=== PATIENT | female | born 1970 | race Caucasian/White ===

== ENCOUNTER → 2016-12-18 | Outpatient (CLI) | payer OTHER ==
[~2016-12-18] MED LIST: AMT50 PO; ATOR10TA82 PO; BIOFTAB30 PO; CLON0.5T3 PO; FLUT0.15 NAE; MULTTAB58 PO; [UNRECOGNIZED DRUG - CODE] PO
[2016-12-18 08:42] LABS: ALT/SGPT 37 U/L (12-78); BLOOD UREA NITROGEN 10 mg/dl (7-18); BUN/CREATININE RATIO 12.7 (10-20); CALCIUM 8.9 mg/dl (8.5-10.1); CARBON DIOXIDE 27 mmol/L (21-32); CHLORIDE 102 mmol/L (98-107); CHOLESTEROL 154 mg/dl (0-200); GLUCOSE 107 mg/dl (70-99); SODIUM 138 mmol/L (136-145)
[2016-12-18 08:51] LABS: ALKALINE PHOSPHATASE 76 U/L (45-117); AST/SGOT 15 U/L (15-37); CHOLESTEROL/HDL RATIO 2.9; HDL CHOLESTEROL 53 mg/dl; LDL CHOLESTEROL CALCULATED 61 mg/dl; TRIGLYCERIDES 199 mg/dl (0-150); VERY LOW DENSITY LIPOPROT CALC 40 mg/dl
== END | disposition home or self-care (01) ==
LOC: C.LAB 07:45
PROVIDERS: ATTEND Internal Medicine
DX: E78.00 Pure hypercholesterolemia, unspecified (principal); R94.6 Abnormal results of thyroid function studies

== ENCOUNTER → 2016-12-31 | Outpatient (CLI) | payer OTHER ==
[~2016-12-31] MED LIST changes: -ATOR10TA82 PO; +ATOR10TA88 PO
--- NOTE | 2016-12-31 12:25 | MAMMOGRAPHY REPORT ---
BILATERAL DIGITAL SCREENING MAMMOGRAM TOMOSYNTHESIS WITH CAD: 12/31/2016 CLINICAL HISTORY: Routine screening. TECHNIQUE: Breast tomosynthesis in addition to standard 2D mammography was performed. Current study was also evaluated with a Computer Aided Detection (CAD) system. COMPARISON: Comparison is made to exams dated: 12/26/2015 mammogram, 12/20/2014 mammogram, 12/18/2013 ma mmogram, 12/13/2012 mammogram - [facility], 04/20/2011 mammogram, and 10/24/2007 mamm ogram - [facility]. BREAST COMPOSITION: The tissue of both breasts is heterogeneously dense, which may obscure small mas ses. FINDINGS: No suspicious masses, calcifications, or areas of architectural distortion are noted in ei ther breast. There has been no significant interval change compared to prior exams. IMPRESSION: ACR BI-RADS CATEGORY 1: NEGATIVE There is no mammographic evidence of malignancy. A 1 year screening mammogram is recommended. The pa tient will receive written notification of the results. Approximately 10% of breast cancers are not detected with mammography. A negative mammographic report should not delay biopsy if a clinically suggestive mass is present. Zayra Alamo M.D. ah/:12/31/2016 07:43:00 Director Of Strategic Sourcing: Augustin RODRIGUEZ(R)(M), [facility] letter sent: Normal 1/2 BI-RADS Code: ACR BI-RADS Category 1: Negative
== END | disposition home or self-care (01) ==
LOC: C.MAMM 07:18
PROVIDERS: ATTEND Internal Medicine
DX: Z12.31 Encounter for screening mammogram for malignant neoplasm of breast (principal)

== ENCOUNTER → 2017-02-15 | Outpatient (CLI) | payer OTHER ==
--- NOTE | 2017-02-15 08:05 | DIAGNOSTIC IMAGING REPORT ---
LEFT EXTREMITY NONVASCULAR LIMITED CLINICAL HISTORY: 46 years-old Female presenting with left shoulder skin lump. TECHNIQUE: Real-time grayscale ultrasound imaging of the left shoulder was performed. Color Doppler was also performed. COMPARISON: None. FINDINGS: Within the subcutaneous fat of the left shoulder at the site of clinical concern is a circumscribed 4.4 x 8.2 x 1.5 cm region that is essentially isoechoic to surrounding fat although having an encapsulated appearance. No hyperemia. No fluid collection. IMPRESSION: 1. Apparent circumscribed encapsulated mass in the subcutaneous fat of the left shoulder at the site of clinical concern with echogenicity that matches the surrounding subcutaneous fat, most likely represents a lipoma. If there is need for further characterization, contrast-enhanced MR could be obtained. Electronically signed by: Niraj Amin M.D. 02/15/2017 8:03 AM Dictated Date/Time: 02/15/2017 8:02 AM
== END | disposition home or self-care (01) ==
LOC: C.ULTRBC 07:14
PROVIDERS: ATTEND Internal Medicine
DX: R22.32 Localized swelling, mass and lump, left upper limb (principal)

== ENCOUNTER → 2017-03-07 | Outpatient (CLI) | payer OTHER ==
[2017-03-07 18:11] LABS: INR 0.9 (0.9-1.1); PROTHROMBIN TIME (PATIENT) 9.9 SECONDS (9.0-12.0)
[2017-03-07 18:26] LABS: BASO % 0.7 %; BASO ABS # 0.08 K/uL (0-0.2); COMPLETE YES; EOS % 2.1 %; HEMATOCRIT 41.8 % (37-47); IG% 0.4 %; LYMPH % 28.5 %; LYMPH ABS # 3.16 K/uL (1.2-3.4); MEAN CELL VOLUME 89.7 fL (80-100); MEAN CORPUSCULAR HGB CONC 33.5 g/dl (32-36); MEAN PLATELET VOLUME 9.3 fL (7.4-10.4); MONO % 7.5 %; NEUT % 60.8 %; PLATELET COUNT 379 K/uL (130-400); RED BLOOD COUNT 4.66 M/uL (4.2-5.4); WHITE BLOOD COUNT 11.09 K/uL (4.8-10.8)
[2017-03-07 18:30] LABS: BLOOD UREA NITROGEN 10 mg/dl (7-18); BUN/CREATININE RATIO 13.1 (10-20); CALCIUM 9.2 mg/dl (8.5-10.1); CARBON DIOXIDE 27 mmol/L (21-32); CHLORIDE 102 mmol/L (98-107); CREATININE 0.74 mg/dl (0.60-1.20); GLUCOSE 102 mg/dl (70-99); POTASSIUM 3.8 mmol/L (3.5-5.1); SODIUM 137 mmol/L (136-145)
== END | disposition home or self-care (01) ==
LOC: C.LAB 16:59
PROVIDERS: ATTEND Plastic Surgery
DX: D17.9 Benign lipomatous neoplasm, unspecified (principal)

== ENCOUNTER → 2017-03-17 | Outpatient (CLI) | payer OTHER | END | disposition home or self-care (01) | LOC: C.PAPS 09:29 | PROVIDERS: ATTEND Physician Assistant | DX: Z12.4 Encounter for screening for malignant neoplasm of cervix (principal) ==

== ENCOUNTER → 2017-03-29 | Day surgery (SDC) | payer OTHER ==
[2017-03-11 15:09] VITALS: BMI 19.0
[~2017-03-29] VITALS: Ht 167.6 cm; Wt 98.5 kg
[~2017-03-29] MED LIST changes: +ATROPINE SULFATE 0.1 MG/ML 5ML SYR IV PRN; +BUPIVACAINE 0.25% 30 ML VIAL ONE; +CEFAZOLIN 2000 MG/60 ML D5W IV SCH; +DEXAMETHASONE SOD INJ 4 MG/ML VIAL IV PRN; +EpHEDrine SULFATE INJ 50 MG/ML AMP IV PRN; +FENTANYL CITRATE INJ 50 MCG/1 ML 2 ML VIAL IV PRN; +FENTANYL CITRATE INJ 50 MCG/1 ML 2 ML VIAL ONE; +KETOROLAC TROMETHAMINE 30 MG/ML VIAL IV. PRN; +LABETALOL HCL IV 5 MG/ML 20ML IV PRN; +LACTATED RINGER'S 1000ML 1,000 ML IV SCH; +LIDOCAINE HCL 1% 20 ML VIAL ONE; +LIDOCAINE HCL 2% 2 ML VIAL (20MG/ML) ONE; +LIDOCAINE/EPINEPHRINE 1% INJ 50 ML VIAL ONE; +METOCLOPRAMIDE HCL INJ 5 MG/ML 2 ML VIAL IV PRN; +MIDAZOLAM HCL 1 MG/ML 2ML VIAL ONE; +MoRPHine SULFATE 10 MG/ML CARP/VIAL IV PRN; +MoRPHine SULFATE 2 MG/ML CARP IV PRN; +MoRPHine SULFATE 4 MG/ML 1 ML CARP\\VIAL IV PRN; +ONDANSETRON INJ 2 MG/ML 2 ML VIAL IV PRN; +OXYCODONE/ACETAMINOPHEN 5-325 TAB PO PRN; +PHENYLEPHRINE 100MCG/ML 5ML SYR IV PRN; +PROPOFOL IV EMULSION 10 MG/ML 20 ML VIAL IV ONE; +SODIUM CHLORIDE 0.9% 1000ML 1,000 ML IV SCH
--- NOTE | 2017-03-29 09:33 | History & Physical Bridge - SC ---
H&P Re-Evaluation Bridge Note: I have examined the patient, reviewed the History & Physical and in the interval since the performance of the History & Physical I have noted the following changes of clinical significance: No changes noted
--- NOTE | 2017-03-29 10:33 | [facility] Post Operative Brief Note ---
Immediate Operative Summary Operative Date Mar 29, 2017. Pre-Operative Diagnosis Lipoma Left Shoulder Post-Operative Diagnosis Same, Pathology Pending Procedure(s) Performed Excision of Lipoma, Left Anterior Shoulder Surgeon Dr. Minh Mccollum Night Assistant Surgeon(s) none Estimated Blood Loss 1 Findings 12x4 cm subcutaneous lipoma Specimens A. Lipoma of Left Anterior Shoulder Anesthesia local with sedation Complication(s) None Disposition Recovery Room / PACU
[2017-03-29 10:35] VITALS: TEMP 37.2
--- NOTE | 2017-03-29 10:37 | Discharge Instructions-SurgCtr ---
Discharge Instructions Date of Service Mar 29, 2017. Visit Reason for Visit: Left Shoulder Lipoma Discharge Discharge Diagnosis / Problem: lipoma left shoulder Discharge Goals Goal(s): Decrease discomfort, Improve function Activity Recommendations Activity Limitations: per Instructions/Follow-up section Anesthesia . Post Anesthesia Instructions: If you have had General Anesthesia or IV Sedation: * Do not drive today. * Resume driving when surgeon permits. * Do not make important decisions or sign legal documents today. * Call surgeon for: 1. Temperature elevations greater than 101 degrees F. 2. Uncontrollable pain. 3. Excessive bleeding. 4. Persistent nausea and vomiting. 5. Medication intolerance (nausea, vomiting or rash). * For nausea and vomiting use only clear liquids such as: tea, soda, bouillon until nausea subsides, then gradually increase diet as tolerated. * If you have any concerns or questions, call your surgeon's office. If physician is unavailable and it is an emergency, call 911 or go to the nearest emergency room. . Instructions / Follow-Up Instructions / Follow-Up ACTIVITY RECOMMENDATIONS: __Normal activities _x_No bending, lifting or straining __No driving _x_Driving allowed when you are off pain medications __Walking permitted __You should have help at home for ___ days DRESSINGS: __No dressings required _x_Keep dressings dry/in place until first office visit __Remove dressings ___ and leave dressings off __Apply ice ___ days __Remove dressings and reapply garment __Apply antibiotic ointment (Bacitracin, Neosporin, etc) to wounds 3-4 times/ day for 10 days BATHING: _x_Keep dressings dry _x_Sponge bathing permitted __Showering permitted _x_No swimming, hot tubs or soaking in a tub MEDICATIONS: Resume previous medications unless instructed otherwise by your surgeon. _x_Do not use aspirin, Motrin, Advil or Ibuprofen as these may promote bleeding. Please use Tylenol. _x_Prescription(s) provided: in office OTHER INSTRUCTIONS: __Record drain output 2-3 times per day SPECIAL CARE INSTRUCTIONS: * It is normal to have a mild fever after surgery. If your temperature is higher than 101.5 degrees F, please call the office at [phone]. * Constipation is a typical side effect of pain medication. An over-the- counter stool softener will help relieve this. * Leaking around surgical drains may occur and should not cause concern. Sometimes these drains become clogged. If this happens, remove the bulb and milk the clot out of the tube, then replace the bulb. * Drainage from wounds after liposuction is normal and should be expected. Garments will become soiled. You should protect furniture and bedding. This drainage should mostly subside within 2-3 days. Leave garments in place unless instructed to remove them. * If you have unusual drainage from a wound or are concerned you have an infection or have any questions or concerns, please call the office at [phone]. FOLLOW UP VISIT: If not already scheduled, please call the office, , when you return home after surgery to schedule an appointment to be seen in ___ days. Diet Recommendations Home Diet: resume previous diet Procedures Procedures Performed: Excision of Lipoma, Left Anterior Shoulder Pending Studies Studies pending at discharge: no Medical Emergencies . Who to Call and When: Medical Emergencies: If at any time you feel your situation is an emergency, please call 911 immediately. . Non-Emergent Contact Non-Emergency issues call your: Primary Care Provider, Surgeon Call Non-Emergent contact if: temperature is above 101.5, your pain is not controlled, wound has increased redness . . "Provider Documentation" section prepared by Corin Mccollum. . [place] Drug Monitoring Program Search Results: patient reviewed within database, no issues identified ( documented in office chart)
[2017-03-29 10:38] VITALS: Ht 167.6 cm; Wt 98.5 kg
[2017-03-29 11:03] VITALS: BP 119/79; PULSE 74; O2SAT 99
--- NOTE | 2017-03-29 11:11 | Anesthesia Progress Nt - [facility] ---
Anesthesia Post Op Note Date & Time Mar 29, 2017 at 11:10 Vital Signs Pain Intensity: 0 Vital Signs Past 12 Hours Date Time Temp Pulse Resp B/P (MAP) Pulse Ox O2 Delivery O2 Flow Rate FiO2 03/29/17 11:03 74 16 119/79 (92) 99 Room Air 03/29/17 10:35 37.2 88 16 113/59 (77) 99 Room Air 03/29/17 08:44 36.5 84 16 117/77 (90) 95 Room Air Notes Mental Status: alert / awake / arousable, participated in evaluation Pt Amnestic to Procedure: Yes Nausea / Vomiting: adequately controlled Pain: adequately controlled Airway Patency, RR, SpO2: stable & adequate BP & HR: stable & adequate Hydration State: stable & adequate Anesthetic Complications: no major complications apparent
--- NOTE | 2017-03-30 09:03 | OPERATIVE REPORT ---
DATE OF OPERATION: 03/29/2017 PREOPERATIVE DIAGNOSIS: Left shoulder lipoma. POSTOPERATIVE DIAGNOSIS: Same. PROCEDURE: Excision of left anterior shoulder lipoma. SURGEON: Dr. Corin Mccollum. COMMERCIAL ILLUSTRATOR: None. ANESTHESIA: Local with sedation. COMPLICATIONS: None. INDICATION FOR THE PROCEDURE: The patient is a 46-year-old female who presented to my office with an enlarging left shoulder mass which caused discomfort when using her seatbelt. She desired excision. BRIEF DESCRIPTION OF THE PROCEDURE: The risks, benefits and alternatives of the procedure were explained to the patient who agreed and signed consent. She was identified and marked in the preoperative holding area. She was brought to the operating room where she was positioned supine and placed under anesthesia without incident. Surgical site was prepped and draped sterilely. A timeout procedure was performed. A 50:50 mix of 1% lidocaine with epinephrine and 0.25% Marcaine plain was used to anesthetize the planned incision as well as the surrounding surgical site. A 15-blade scalpel was used to make a small incision along the lines of relaxed skin tension. Just deep to dermis, the lipoma was encountered. It was well circumscribed. It was able to be bluntly dissected using a curved hemostat as well as blunt finger dissection with electrocautery to divide fibrous bands and provide hemostasis. The lesion was removed in its entirety. It measured 12 x 4 cm. Hemostasis was achieved with electrocautery. Additional local anesthetic was injected into the base of the wound. Wound was reapproximated using 3-0 Vicryl interrupted dermal sutures and 3-0 Monocryl running subcuticular suture. Dermabond was applied, followed by Friona Foam and elastoplast tape to provide compression. The procedure was tolerated well. She was awakened and transferred to recovery room in satisfactory condition. I attest to the content of the Intraoperative Record and any orders documented therein. Any exception s are noted below.
== END | disposition home or self-care (01) ==
LOC: X.SURG 08:16
PROVIDERS: ATTEND Plastic Surgery
DX: D17.22 Benign lipomatous neoplasm of skin and subcutaneous tissue of left arm (principal); F43.22 Adjustment disorder with anxiety; J45.909 Unspecified asthma, uncomplicated; E78.1 Pure hyperglyceridemia; Z79.899 Other long term (current) drug therapy

== ENCOUNTER → 2017-08-30 | Outpatient (CLI) | payer OTHER ==
[~2017-08-30] MED LIST changes: +ATOR10TA82 PO; -ATOR10TA88 PO; -ATROPINE SULFATE 0.1 MG/ML 5ML SYR IV PRN; -BUPIVACAINE 0.25% 30 ML VIAL ONE; -CEFAZOLIN 2000 MG/60 ML D5W IV SCH; -DEXAMETHASONE SOD INJ 4 MG/ML VIAL IV PRN; -EpHEDrine SULFATE INJ 50 MG/ML AMP IV PRN; -FENTANYL CITRATE INJ 50 MCG/1 ML 2 ML VIAL IV PRN; -FENTANYL CITRATE INJ 50 MCG/1 ML 2 ML VIAL ONE; -KETOROLAC TROMETHAMINE 30 MG/ML VIAL IV. PRN; -LABETALOL HCL IV 5 MG/ML 20ML IV PRN; -LACTATED RINGER'S 1000ML 1,000 ML IV SCH; -LIDOCAINE HCL 1% 20 ML VIAL ONE; -LIDOCAINE HCL 2% 2 ML VIAL (20MG/ML) ONE; -LIDOCAINE/EPINEPHRINE 1% INJ 50 ML VIAL ONE; -METOCLOPRAMIDE HCL INJ 5 MG/ML 2 ML VIAL IV PRN; -MIDAZOLAM HCL 1 MG/ML 2ML VIAL ONE; -MoRPHine SULFATE 10 MG/ML CARP/VIAL IV PRN; -MoRPHine SULFATE 2 MG/ML CARP IV PRN; -MoRPHine SULFATE 4 MG/ML 1 ML CARP\\VIAL IV PRN; -ONDANSETRON INJ 2 MG/ML 2 ML VIAL IV PRN; -OXYCODONE/ACETAMINOPHEN 5-325 TAB PO PRN; -PHENYLEPHRINE 100MCG/ML 5ML SYR IV PRN; -PROPOFOL IV EMULSION 10 MG/ML 20 ML VIAL IV ONE; -SODIUM CHLORIDE 0.9% 1000ML 1,000 ML IV SCH
[2017-08-30 11:13] LABS: ALBUMIN 3.7 gm/dl (3.4-5.0); ALKALINE PHOSPHATASE 81 U/L (45-117); ALT/SGPT 47 U/L (12-78); AST/SGOT 17 U/L (15-37); BLOOD UREA NITROGEN 13 mg/dl (7-18); CALCIUM 8.5 mg/dl (8.5-10.1); CARBON DIOXIDE 26 mmol/L (21-32); CREATININE 0.75 mg/dl (0.60-1.20); GLUCOSE 111 mg/dl (70-99); POTASSIUM 4.1 mmol/L (3.5-5.1); SODIUM 135 mmol/L (136-145)
[2017-08-30 11:19] LABS: CHOLESTEROL 151 mg/dl (0-200); LDL CHOLESTEROL CALCULATED 60 mg/dl; TOTAL PROTEIN 7.1 gm/dl (6.4-8.2)
== END | disposition home or self-care (01) ==
LOC: C.LABBC 07:14
PROVIDERS: ATTEND Internal Medicine
DX: R31.29 Other microscopic hematuria (principal); R94.6 Abnormal results of thyroid function studies; E78.00 Pure hypercholesterolemia, unspecified; R73.9 Hyperglycemia, unspecified

== ENCOUNTER → 2018-02-09 | Outpatient (CLI) | payer OTHER ==
[~2018-02-09] MED LIST changes: -CLON0.5T3 PO; +KLN/5 PO
--- NOTE | 2018-02-10 15:41 | MAMMOGRAPHY REPORT ---
BILATERAL DIGITAL SCREENING MAMMOGRAM TOMOSYNTHESIS WITH CAD: 02/09/2018 CLINICAL HISTORY: Routine screening. TECHNIQUE: The study was acquired using full field digital technology and interpreted from soft copy. Breast tomosynthesis in addition to standard 2D mammography was performed. Current study was also ev aluated with a Computer Aided Detection (CAD) system. COMPARISON: Comparison is made to exams dated: 12/31/2016 mammogram, 12/26/2015 mammogram, 12/20/2014 damon mogram, 12/18/2013 mammogram, 12/13/2012 mammogram - [facility], and 04/20/2011 mammo gram - [facility]. BREAST COMPOSITION: The tissue of both breasts is heterogeneously dense, which may obscure small mass es. FINDINGS: No suspicious masses, calcifications, or areas of architectural distortion are noted in either breast . There has been no significant interval change compared to prior exams. IMPRESSION: ACR BI-RADS CATEGORY 1: NEGATIVE There is no mammographic evidence of malignancy. A 1 year screening mammogram is recommended.( 019) The patient will receive written notification of the results. Some breast cancers are not detected with mammography. A negative mammographic report should not anamaria y biopsy if a clinically suggestive mass is present. Zayra Alamo M.D. ah/:02/09/2018 16:10:35 Narrow Gauge Operator: RT Tiffany(Abby)(M), [facility] letter sent: Normal 1/2 BI-RADS Code: ACR BI-RADS Category 1: Negative
== END | disposition home or self-care (01) ==
LOC: C.MAMM 15:24
PROVIDERS: ATTEND Internal Medicine
DX: Z12.31 Encounter for screening mammogram for malignant neoplasm of breast (principal)

== ENCOUNTER → 2018-02-11 | Outpatient (CLI) | payer OTHER ==
[2018-02-11 08:15] LABS: ALBUMIN 3.6 gm/dl (3.4-5.0); ALKALINE PHOSPHATASE 75 U/L (45-117); ALT/SGPT 30 U/L (12-78); AST/SGOT 15 U/L (15-37); BLOOD UREA NITROGEN 16 mg/dl (7-18); CALCIUM 8.7 mg/dl (8.5-10.1); CARBON DIOXIDE 25 mmol/L (21-32); CREATININE 0.68 mg/dl (0.60-1.20); GLUCOSE 100 mg/dl (70-99); POTASSIUM 4.1 mmol/L (3.5-5.1); SODIUM 138 mmol/L (136-145); TOTAL PROTEIN 7.2 gm/dl (6.4-8.2)
[2018-02-11 09:37] LABS: HEMOGLOBIN A1C 5.6 % (4.5-5.6)
== END | disposition home or self-care (01) ==
LOC: C.LAB 07:17
PROVIDERS: ATTEND Internal Medicine
DX: R73.9 Hyperglycemia, unspecified (principal)

== ENCOUNTER 2019-03-09 06:20 | Observation (INO) ==
--- NOTE | 2019-02-19 15:41 | PAT Medication Instructions ---
Medication Instructions Date of Service February 19, 2019 Home Medications Medication Instructions Recorded escitalopram 20 mg tablet 20 mg PO QAM #30 tab 02/19/19 acetaminophen [Tylenol Extra Strength] 1,000 mg PO Q8H PRN amitriptyline 50 mg tablet 50 mg PO HS atorvastatin 10 mg tablet 10 mg PO HS clonazepam 0.5 mg tablet 0.5 mg PO DAILY PRN fluticasone propionate 50 mcg/actuation nasal spray,suspension 1 sprays INTRANASAL BID PRN sumatriptan 25 mg tablet 25 mg PO DAILY PRN cholecalciferol (vitamin D3) [Vitamin D3] 2,000 unit PO DAILY multivitamin 1 tab PO DAILY escitalopram 20 mg tablet 20 mg PO QAM DO NOT take the morning of surgery cholecalciferol (vitamin D3) [Vitamin D3] 2,000 unit PO DAILY multivitamin 1 tab PO DAILY Take morning of surgery With a small sip of water, OTHERWISE NOTHING TO EAT OR DRINK AFTER MIDNIGHT: Acetaminophen [Tylenol Extra Strength] 1,000 mg PO Q8H PRN (okay to take up to 4 hours prior to surgery if needed) clonazepam 0.5 mg tablet 0.5 mg PO DAILY PRN (if needed) fluticasone propionate 50 mcg/actuation nasal spray,suspension 1 sprays INTRANASAL BID PRN (if needed) sumatriptan 25 mg tablet 25 mg PO DAILY PRN (if needed) escitalopram 20 mg tablet 20 mg PO QAM Take evening before surgery acetaminophen [Tylenol Extra Strength] 1,000 mg PO Q8H PRN (if needed) amitriptyline 50 mg tablet 50 mg PO HS atorvastatin 10 mg tablet 10 mg PO HS clonazepam 0.5 mg tablet 0.5 mg PO DAILY PRN (if needed) fluticasone propionate 50 mcg/actuation nasal spray,suspension 1 sprays INTRANA DEVON BID PRN (if needed) sumatriptan 25 mg tablet 25 mg PO DAILY PRN (if needed) Other Notes If you have any questions please call us at [phone] or [phone] or [phone] or [phone]
--- NOTE | 2019-02-20 09:28 | Anesthesiology Consultation ---
Date of Service February 20, 2019 Assessment & Plan (1) Encounter for pre-operative examination: - Check test AM DOS Chart Review Chart Review: Acceptable Risk for Surgery and Patient seen in Pre Admission Te sting Teaching & Discussion Pre-Anesthesia Teaching/Discussion Notes: Instructed NPO after midnight before surgery,except medications with 15 cc of water. Medication instructions provided according to the PAT guidelines. History Surgery Operation Date: 03/09/19 10:00 Proposed Procedures p Robotic Total Laparos Hysterectomy - Brenann Gordon MD Height/Weight Height: 5 ft 6 in Weight: 109.1 kg Allergies Allergy/AdvReac Type Severity Reaction Status Date / Time Animal dander - Cats Allergy Unknown SWELLING Uncoded 02/20/19 08:31 Animal dander - Dogs Allergy Unknown SWELLING Uncoded 02/20/19 08:31 sertraline AdvReac Unknown FEELS Uncoded 02/20/19 08:31 SPACED OUT Medications Home Medications Medication Instructions Recorded Confirmed Last Taken acetaminophen [Tylenol Extra 1,000 mg PO Q8H PRN 04/12/18 02/12/19 Unknown Strength] amitriptyline 50 mg tablet 50 mg PO HS #90 tab 01/19/19 02/12/19 Unknown atorvastatin 10 mg tablet 10 mg PO HS #90 tab 01/19/19 02/12/19 Unknown clonazepam 0.5 mg tablet 0.5 mg PO DAILY PRN #30 tab 01/19/19 02/12/19 Unknown fluticasone propionate 50 1 sprays INTRANASAL BID PRN #1 gm 01/19/19 02/12/19 Unknown mcg/actuation nasal spray,suspension sumatriptan 25 mg tablet 25 mg PO DAILY PRN #10 tab 01/19/19 02/12/19 Unknown cholecalciferol (vitamin D3) 2,000 unit PO DAILY 02/12/19 02/20/19 Unknown [Vitamin D3] multivitamin 1 tab PO DAILY 02/12/19 02/20/19 Unknown escitalopram 20 mg tablet 20 mg PO QAM #30 tab 02/19/19 02/20/19 Unknown Past Medical History Medical History Anxiety and depression Asthma stable; environmental allergy induced High cholesterol History of migraine Obesity Uterine fibroid Exercise / Class Metabolic Activity II 4-5 Yardwork/Stairs/Walk up hill Past Family History Family History Aunt Breast cancer Uterine cancer Uncle Hx of CABG Gout Leukemia Osteoarthritis Grandfather (Maternal) Hx of CABG Diabetes Osteoarthritis Grandmother (Maternal) Colorectal cancer Congestive heart failure Diabetes Hypertension Osteoarthritis Grandfather (Paternal) Diabetes Hypertension Father Hypertension Mother Gout Osteoarthritis Other Heart disease Stroke Past Surgical History Surgical History History of dental surgery History of surgery on left wrist Hx of hernia repair X2 RIGHT Hx of tubal ligation Past Anesthesia History No Hx of Anesthesia Complications and No Family Hx of Anesthesia Complications History of PONV No Hx of PONV and No Hx of Motion Sickness Social History Smoking Status: Former smoker Do You Dip or Chew Tobacco: No Smoking End Date: Quit 6 years ago (hx social use) Hx Alcohol Use: Yes alcohol intake frequency: a few times a week (mixed drinks/shots) Hx Substance Use: No Review of Systems Diet controlled reflux. Patient denies chest pain, shortness of breath, dyspnea on exertion, cough, wheezing, palpitations. Physical Exam Vital Signs VITALS BP 132/83 P 87 TEMP 98.4 SP02 95%RA RESP 18 PHYSICAL Full neck and c-spine range of motion. Full TMJ range of motion. TMD 3 finger breaths Mallampati Score 2 Dentition: intact, crowns on molars Lungs: clear throughout to auscultation Cardiac: regular rate and rhythm, no murmurs noted Spine: normal Carotid arteries: negative bruit Extremities: no edema Testing Laboratory Results 02/20/19 09:45 Blood Type O Positive 02/20/19 09:45 Antibody Screen NEGATIVE 02/20/19 09:45
[2019-02-20 11:10] LABS: Basophils # (auto) 0.09 K/uL (0-0.2); Eosinophils # (auto) 0.32 K/uL (0-0.5); Eosinophils % (auto) 3.4 %; Hematocrit (blood only) 39.2 % (37-47); Hemoglobin 13.3 g/dL (12.0-16.0); Immature Granulocytes # (auto) 0.03 K/uL (0.00-0.02); Immature Granulocytes % (auto) 0.3 %; Lymphocytes # (auto) 2.26 K/uL (1.2-3.4); Mean Corpuscular Hgb Conc 33.9 g/dL (32-36); Mean Corpuscular Volume 88.9 fL (80-100); Mean Platelet Volume 9.5 fL (7.4-10.4); Monocytes % (auto) 9.6 %; Neutrophils # (auto) 5.81 K/uL (1.4-6.5); Neutrophils % (auto) 61.7 %; Platelet Count 397 K/uL (130-400); RDW Coefficient of Variation 13.5 % (11.5-14.5); RDW Standard Deviation 44.4 fL (36.4-46.3); Red Blood Count 4.41 M/uL (4.2-5.4); White Blood Count 9.41 K/uL (4.8-10.8)
[~2019-03-09 06:20] MED LIST changes: -AMT50 PO; -ATOR10TA82 PO; -BIOFTAB30 PO; +CEFAZOLIN 3000MG 65 ML IV SCH; -FLUT0.15 NAE; -KLN/5 PO; +LACTATED RINGER'S 1,000 ML IV SCH; +LR 15ML/HR IV SCH; -MULTTAB58 PO; -[UNRECOGNIZED DRUG - CODE] PO
[2019-03-09] MEDS ORDERED: BUPIVACAINE 0.5 % 5 MG/1 ML MPF 30ML VIAL ONE (07:06)
[2019-03-09] MEDS ORDERED: METHYLENE BLUE 0.5% 10 ML VIAL ONE (07:06)
[2019-03-09] MEDS ORDERED: PROPOFOL IV EMULSION 10 MG/ML 20 ML VIAL IV ONE (07:14)
[2019-03-09] MEDS ORDERED: LIDOCAINE HCL 2% 2 ML VIAL/AMP(20MG/ML) INFIL ONE (07:14)
[2019-03-09] MEDS ORDERED: ROCURONIUM BROMIDE 10 MG/ML 5 ML VIAL ONE ×4 (07:14→11:22)
[2019-03-09] MEDS ORDERED: MIDAZOLAM HCL 1 MG/ML 2ML VIAL ONE (07:14)
[2019-03-09] MEDS ORDERED: DEXAMETHASONE SOD INJ 4 MG/ML VIAL ONE (07:14)
[2019-03-09] MEDS ORDERED: ONDANSETRON INJ 2 MG/ML 2 ML VIAL ONE (07:14)
[2019-03-09] MEDS ORDERED: fentaNYL citrate 100 MCG/2 ML VIAL ONE (07:15)
--- NOTE | 2019-03-09 07:19 | History & Physical Bridge Note ---
Date of Service March 09, 2019 History & Physical Bridge Note I have examined the patient, reviewed the History & Physical and in the interval since the performance of the History & Physical I have noted the following changes of clinical significance: no changes noted
[2019-03-09] MEDS ORDERED: PHENAZOPYRIDINE HCL 100 MG TAB PO STA (07:23)
[2019-03-09 07:33] LABS: Basophils # (auto) 0.09 K/uL (0-0.2); Eosinophils # (auto) 0.33 K/uL (0-0.5); Eosinophils % (auto) 3.5 %; Hemoglobin 12.9 g/dL (12.0-16.0); Immature Granulocytes # (auto) 0.03 K/uL (0.00-0.02); Immature Granulocytes % (auto) 0.3 %; Lymphocytes # (auto) 2.14 K/uL (1.2-3.4); Lymphocytes % (auto) 22.7 %; Mean Corpuscular Volume 90.1 fL (80-100); Mean Platelet Volume 9.2 fL (7.4-10.4); Monocytes # (auto) 0.92 K/uL (0.11-0.59); Monocytes % (auto) 9.8 %; Neutrophils # (auto) 5.92 K/uL (1.4-6.5); Neutrophils % (auto) 62.7 %; Platelet Count 323 K/uL (130-400); RDW Coefficient of Variation 13.4 % (11.5-14.5); Red Blood Count 4.33 M/uL (4.2-5.4); White Blood Count 9.43 K/uL (4.8-10.8)
[2019-03-09 07:41] LABS: Mean Corpuscular Hgb Conc 33.1 g/dL (32-36)
[2019-03-09] MEDS ORDERED: PROMETHAZINE HCL 12.5 MG in SODIUM CHLORIDE 0.9% 50 ML IV PRN ×2 (07:44→10:57)
[2019-03-09] MEDS ORDERED: LABETALOL HCL IV 5 MG/ML 20ML IV PRN (07:44)
[2019-03-09] MEDS ORDERED: HYDROmorphone INJ 1 MG/ML SYRINGE IV PRN (07:44)
[2019-03-09] MEDS ORDERED: ATROPINE SULFATE 0.1 MG/ML 10ML SYR IV PRN (07:44)
[2019-03-09] MEDS ORDERED: FLUMAZENIL 0.1 MG/1 ML 10 ML VIAL IV PRN (07:44)
[2019-03-09] MEDS ORDERED: ONDANSETRON INJ 2 MG/ML 2 ML VIAL IV PRN ×2 (07:44→10:57)
[2019-03-09] MEDS ORDERED: NALOXONE HCL 0.4 MG/1 ML VIAL/CARP IV PRN (07:44)
[2019-03-09] MEDS ORDERED: HYDROmorphone INJ 2 MG/ML SYR/VIAL ONE (08:38)
[2019-03-09] MEDS ORDERED: TISSEEL FIBRIN SEALANT 10ML TOP ONE (09:09)
[2019-03-09] MEDS ORDERED: GLYCOPYRROLATE 0.2 MG/ML VIAL ONE (09:30)
[2019-03-09] MEDS ORDERED: LABETALOL HCL IV 5 MG/ML 20ML IV ONE (09:30)
[2019-03-09] MEDS ORDERED: NEOSTIGMINE METHYLSULFATE 5 MG/5 ML SYR ONE (09:30)
[2019-03-09] MEDS ORDERED: SIMETHICONE 80 MG CHEW PO PRN (10:57)
[2019-03-09] MEDS ORDERED: OXYCODONE/ACETAMINOPHEN 5mg/325mg TAB PO PRN (10:57)
[2019-03-09] MEDS ORDERED: ACETAMINOPHEN 325 MG TAB PO PRN (10:57)
[2019-03-09] MEDS ORDERED: BISACODYL 10 MG SUPP PR PRN (10:57)
--- NOTE | 2019-03-09 10:57 | Post Operative Brief Note ---
PG Immediate Post Op with CF Date of Surgery March 09, 2019 Pre & Post Diagnosis Operation Date: 03/09/19 07:30 Pre-Op Diagnosis: Dysfunctional Uterine Bleeding Post-Op Diagnosis: Dysfunctional Uterine Bleeding Procedure Operation Date: 03/09/19 07:30 Actual Procedures p Robotic Total Laparoscopic Hysterectomy, Bilateral Salpingectomy, Extensive lysis of adhesions, Cystoscopy - Brennan Gordon MD Complications: None Surgeon Brennan Gordon MD Lpn Instructor None Estimated Blood Loss 50 Findings Consistent with Post-Op Diagnosis Specimens Specimen Description: Permanent Specimen: A: Uterus, cervex, bilateral fallopian tube stubs
--- NOTE | 2019-03-09 11:47 | Anesthesiology Progress Note ---
Date of Service March 09, 2019 Anesthesia Post Procedure Vital Signs Vital Signs: Temp Pulse Pulse Resp BP Pulse Ox 03/09/19 11:40 85 17 138/68 95 03/09/19 11:30 67 13 125/75 96 03/09/19 11:20 68 12 121/66 93 03/09/19 11:12 36.8 C 75 15 141/64 H 95 03/09/19 06:58 37.3 C 82 18 125/84 97 Pain Intensity Abdomen: Pain Intensity: 3 Transfer of Care Handoff Completed per policy Notes Mental Status: alert / awake / arousable Patient Amnestic to Procedure: Yes Nausea / Vomiting: adequately controlled Pain: adequately controlled Airway Patency, RR, SpO2: stable & adequate BP & HR: stable & adequate Hydration State: stable & adequate Anesthetic Complications: no major complications apparent
[2019-03-09] MEDS: OXYCODONE/ACETAMINOPHEN 5mg/325mg TAB PO PRN ×2 (12:51→17:15)
[2019-03-09] MEDS: IBUPROFEN 600 MG TAB PO PRN ×2 (12:52→17:14)
--- NOTE | 2019-03-09 15:52 | Operative Report ---
DATE OF OPERATION: 03/09/2019 PROCEDURE: 1. Total laparoscopic hysterectomy. 2. Partial salpingectomy. 3. Cystoscopy. 4. Extensive lysis of adhesions of greater than 1.5 hours. SURGEON: Brennan Gordon MD. PREOPERATIVE DIAGNOSES: 1. Dysfunctional uterine bleeding. 2. Enlarged ____ uterus. 3. Suspected adenomyosis. 4. Chronic pelvic pain. 5. Failed medical management. POSTOPERATIVE DIAGNOSES: 1. Dysfunctional uterine bleeding. 2. Enlarged ____ uterus. 3. Suspected adenomyosis. 4. Chronic pelvic pain. 5. Failed medical management. 6. Status post procedure. ESTIMATED BLOOD LOSS: 50 mL. DRAINS: Hoffman. FLUIDS: Continuous lactated ringer. URINE OUTPUT: 300 mL via Hoffman. COMPLICATIONS: None. FINDINGS: Upon entry into the abdomen, there was noted to be extensive adhesive disease of the omentum to anterior abdominal wall starting at the umbilicus and continuing down to the anterior pelvis overlying the uterus and bladder. This extended in both directions from the pelvic brim on the right ____ extending over to the pelvic brim on the left. The adhesions were serially lysed to free the omentum from the anterior abdominal wall and for visualization of the lower pelvis for the procedure. Otherwise, the uterus was noted to be enlarged approximately 11-12 week size with signs of adenomyosis based on gross appearance. Both ovaries did appear to be within normal limits. There is tubal remnant still present with no prior tubal ligation. There was noted to be bilateral ureteral efflux and intact bladder on cystoscopy at the end of the case. DESCRIPTION OF PROCEDURE: The patient was taken to the Operating Room after consents were ensured. Upon presentation, she was properly identified. General endotracheal anesthesia was then obtained without difficulty. The patient was prepped and draped in normal sterile fashion. A preprocedural timeout was then performed. A speculum was then placed within the vagina. Cervix was visualized. Single tooth tenaculum placed on the anterior aspect of the cervix. A Go Vocab uterine manipulator was placed per stunt person specifications. The laparoscopic portion of the case was initiated. A 12 mm incision was made on the superior aspect of the umbilicus. A Veress needle was inserted through the incision and the abdomen was insufflated to 15 mmHg. There was noted to be an initial opening pressure of approximately 6 mmHg, symmetric abdominal rise and tympany over the liver consistent with appropriate intraabdominal insufflation. A 12 mm optically guided trocar was then inserted through the incision and into the abdomen without difficulty. On inspection, there was noted to be atraumatic entry; however, there was noted to be omentum covering the umbilicus with the trocar through the middle of the omentum. No bowel did appear to be involved on careful inspection. We were able to direct the trocar around the omental adhesions and was able to see the left lower quadrant and was able to put an 8 mm trocar under direct visualization with atraumatic entry noted. The camera was then placed in the left lower quadrant and a right lower quadrant trocar was then placed with direct visualization and atraumatic entry noted. A 5 mm incision was made in the left upper quadrant and a 5 mm trocar was placed under direct visualization with atraumatic entry noted. The findings as noted above with extensive adhesions were noted and a lysis of adhesions of greater than 90 minutes was performed to clear the abdomen, so that the lower abdomen and pelvis could be visualized and the uterus, ovaries and tubes could be seen. After the adhesions were taken down both bluntly with cautery and sharp dissection, the hysterectomy portion of the case was started. The left round ligament was identified, serially cauterized and dissected opening up the retroperitoneal space. The bladder flap was then dissected anteriorly to approximately the midline. The uteroovarian ligament was then identified, serially cauterized, dissected and continued to the level of the prior dissection of the round ligament. The broad ligament was then continued just proximal to the uterine vessels. The right portion of the uterus was then identified. There was noted to be an extensive signs of inflammation and peritoneal broad ligament and peritoneal thickening. As a result the right round ligament was identified and was noted to be thickened secondary to what appears to be inflammation, but it was serially cauterized and dissected. The uteroovarian ligament was then identified, serially cauterized, dissected continuing to the level of the previously dissected round ligament. The bladder flap was then continued anteriorly starting on the right and continuing to connect with the portion that went midway from the left. The bladder was then dissected off of the lower uterine segment and cervix and the VCare uterine manipulator cup was easily identified. The right round and broad ligament was then serially cauterized and dissected to the level of the uterine vessels. The uterine vessels on the right were then again identified and were skeletonized to allow for clear dissection. The right uterine vessels were then identified, serially cauterized and dissected and there was noted to be excellent blanching of the uterus at that time. The colpotomy was then started anterior and continued circumferentially around the [employer]Care uterine manipulator cup freeing the cervix from the vagina. The uterus was then delivered through the vaginal cuff without difficulty. The vaginal cuff was then reapproximated with V-Loc suture in continuous running stitch. The decision was made to end the laparoscopic portion of the case. A cystoscopy was performed with intact bladder and bilateral ureteral efflux noted. The robot was then undocked and Tisseel was then placed over the raw edges of the peritoneum and bladder flap and pelvis and vaginal cuff. The abdomen was then desufflated. Trocars were removed. The fascia at the umbilicus was reapproximated with 0 Vicryl in a single interrupted stitch. The skin was reapproximated with 3-0 Vicryl in single interrupted stitch. A 10 mL of lidocaine was distributed throughout the 4 incisions. The Dermabond was placed on top of the incisions and the patient was awoken from anesthesia and taken to the Recovery Room in excellent condition. Needle, sponge and instrument counts were correct x2. I attest to the content of the Intraoperative Record and any orders documented therein. Any exception s are noted below.
[2019-03-09] MEDS ORDERED: DOCUSATE SODIUM 100 MG CAP PO SCH (21:00)
--- NOTE | 2019-03-12 13:10 | Discharge Summary ---
PROCEDURES WHILE ADMITTED: Total laparoscopic hysterectomy, bilateral salpingectomy, extensive lysis of adhesions and cystoscopy. SURGEON: Brennan Gordon MD HOSPITAL COURSE: The patient was admitted for the above noted procedure. The procedure was performed without complication. She remained in house under observation for an approximately 6-8 hour recovery period, at which time she was meeting all postoperative goals. The patient requested discharge at that time which was provided for her. No complications arose during her recovery course. The patient was discharged home in stable condition. Both written and verbal detailed postoperative instructions were provided for the patient. Prior to discharge, she is scheduled to come back to clinic in 2 weeks, discussed pathology for further evaluation and was encouraged to call if any complications arose.
== END 2019-03-09 19:30 | disposition home or self-care (01) ==
LOC: 4N 06:20 → ASU 06:20
DX: Z79.899 Other long term (current) drug therapy; J45.909 Unspecified asthma, uncomplicated; N85.2 Hypertrophy of uterus; Z88.8 Allergy status to other drugs, medicaments and biological substances; E78.5 Hyperlipidemia, unspecified; Z68.39 Body mass index [BMI] 39.0-39.9, adult; D25.9 Leiomyoma of uterus, unspecified; R10.2 Pelvic and perineal pain; E66.9 Obesity, unspecified; Z87.891 Personal history of nicotine dependence; N93.8 Other specified abnormal uterine and vaginal bleeding